=== PATIENT | female | born 1945 | race Two or more races ===

== ENCOUNTER → 2022-11-11 | Day surgery (SDC) | payer MEDICAID ==
[2022-11-09 12:55] LABS: Basophils # (auto) 0.1 10 ^3/uL (0-0.2); Basophils % (auto) 0.6 % (0.0-2.0); Eosinophils # (auto) 0.1 10 ^3/uL (0-0.8); Eosinophils % (auto) 1.3 % (0.0-7.0); Hematocrit 40.4 % (36.0-46.0); Hemoglobin 13.7 g/dL (12.2-16.2); Lymphocytes # (auto) 1.9 10 ^3/uL (0.4-5.4); Lymphocytes % (auto) 22.9 % (10.0-50.0); Mean Corpuscular Hemoglobin 27.4 pg (28.0-32.0); Mean Corpuscular Hgb Conc. 33.8 g/dL (32.0-36.0); Mean Corpuscular Volume 81.1 fL (80.0-100.0); Monocytes # (auto) 0.5 10 ^3/uL (0-1.3); Monocytes % (auto) 6.5 % (0.0-12.0); Neutrophils # (auto) 5.7 10 ^3/uL (1.6-8.6); Neutrophils % (auto) 68.7 % (37.0-80.0); Nucleated Red Blood Cells % 0.1 %; Red Blood Cells 4.98 10^6/uL (4.0-5.20); Red Cell Distribution Width 13.1 % (11.8-14.3); White Blood Cell 8.3 10^3/uL (4.4-10.8)
[2022-11-09 13:08] LABS: Urine Bacteria NONE SEEN /hpf (None Seen); Urine Blood Negative /uL (Negative); Urine Specific Gravity 1.016 (1.001-1.035); Urine WBC 1 /hpf (0 - 5)
[2022-11-09 13:13] LABS: INR 0.91 (0.9-1.15); Partial Thromboplastin Time 25.4 sec (24.6-33.4)
[2022-11-09 13:44] LABS: Potassium 3.6 mmol/L (3.5-5.1)
[2022-11-09 13:49] LABS: Albumin 3.7 g/dL (3.4-5.0); BUN/Creatinine Ratio 20.8; Calcium 9.7 mg/dL (8.5-10.1)
[2022-11-09 13:52] LABS: Bilirubin, Total 0.3 mg/dL (0.2-1.0); Total Protein 7.7 g/dL (6.4-8.2)
[~2022-11-11] VITALS: Ht 154.9 cm; Wt 83.5 kg
[~2022-11-11] MED LIST: CARV3.1240 PO; FAMO-68 PO; FAMO20TA10 PO; FAMOTIDINE (10MG/ML) 2ML VL IV ONE; LEVO100C3 PO; LIDOCAINE 2% (LOCAL ANESTH.) PF 5ml SDV ONE; LOSA-39 PO; PROPOFOL 10 MG/ML 20 ML IV ONE; SERT50TA19 PO
[2022-11-11 14:15] VITALS: BP 130/61
== END | disposition home or self-care (01) ==
LOC: GI 12:03
PROVIDERS: ATTEND Internal Medicine Gastroenterology
DX: K21.9 Gastro-esophageal reflux disease without esophagitis (principal); R13.10 Dysphagia, unspecified; K22.2 Esophageal obstruction; K29.50 Unspecified chronic gastritis without bleeding; K44.9 Diaphragmatic hernia without obstruction or gangrene; Z20.822 Contact with and (suspected) exposure to COVID-19
CPT/HCPCS: 36415; 43239; 43450; 80053; 81001; 85025; 85610; 85730; 88305; 88312; 88342; J2001; J2704; J3490; J7030; U0003